=== PATIENT | female | born 1965 | race Caucasian/White ===

== ENCOUNTER 2021-03-11 12:19 | Outpatient (CLI) | payer OTHER | END 2021-03-11 12:20 | disposition critical access hospital (66) | LOC: EMS 12:19 | DX: Z04.3 Encounter for examination and observation following other accident (principal); M25.551 Pain in right hip | CPT/HCPCS: A0425; A0427 ==

== ENCOUNTER 2021-03-11 12:37 | Emergency (ER) | payer OTHER ==
[2021-03-11] MEDS ORDERED: HYDROmorphone 1 MG/ML CARPUJECT IVP STA (13:05)
[2021-03-11] MEDS ORDERED: SODIUM CHLORIDE 0.9% 1,000 ML IV STA (13:05)
[2021-03-11] MEDS ORDERED: PROPOFOL 200 MG/20 ML VIAL IVP STA (13:05)
--- NOTE | 2021-03-11 13:06 | ED Physician Documentation ---
PD HPI LOWER EXT INJURY - Stated complaint Stated Complaint: HIP PX - Chief complaint Chief Complaint: Trauma Ext - History obtained from History obtained from: Patient, EMS - Additional information Additional information: 55-year-old woman with a 5-year-old prosthetic hip. Had a dislocation about 2 weeks ago. Today she was standing on flat ground and felt her hip pop and dislocate again. Pain is severe despite 100 mcg of fentanyl given in route. Review of Systems Ten Systems: 10 systems reviewed and negative Constitutional: reports: Reviewed and negative Throat: reports: Reviewed and negative Cardiac: reports: Reviewed and negative Respiratory: reports: Reviewed and negative PD PAST MEDICAL HISTORY - Past Medical History Past Medical History: No - Past Surgical History Past Surgical History: Yes Ortho: Hip replacement - Present Medications Home Medications: Ambulatory Orders Medication Instructions Recorded Confirmed HYDROcod/ACETAM 5/325 [Garfield 5/325] 1 - 2 tab PO Q6H PRN #15 tablet 03/11/21 Ondansetron Odt [Zofran] 4 mg TL Q6H PRN #10 tablet 03/11/21 - Allergies Allergies/Adverse Reactions: Allergies Allergy/AdvReac Type Severity Reaction Status Date / Time tramadol Allergy Unknown Verified 03/11/21 12:58 ketamine AdvReac Anxiety Verified 03/11/21 12:58 - Social History Smoking Status: Current every day smoker - Family History Family history: reports: Non contributory PD ED PE NORMAL - Vitals Vital signs reviewed: Yes - General General: Alert and oriented X 3, No acute distress - HEENT HEENT: PERRL, EOMI - Neck Neck: Supple, no meningeal sign, No bony TTP - Cardiac Cardiac: RRR, No murmur - Respiratory Respiratory: No respiratory distress, Clear bilaterally - Abdomen Abdomen: Normal bowel sounds, Soft, Non tender - Back Back: No CVA TTP, No spinal TTP - Derm Derm: Normal color, Warm and dry - Extremities Extremities: Other (Hip exquisitely tender and held externally rotated and flexed on the right.) - Neuro Neuro: Alert and oriented X 3, Normal speech Results - Vitals Vitals: Vital Signs - 24 hr 03/11/21 03/11/21 03/11/21 12:54 13:31 13:38 Temperature 36.3 C L Heart Rate 77 80 71 Respiratory 16 15 12 Rate Blood Pressure 118/92 H 133/82 H 144/70 H O2 Saturation 96 99 100 03/11/21 13:45 Temperature Heart Rate 82 Respiratory 14 Rate Blood Pressure 122/64 O2 Saturation 94 Oxygen O2 Source Room air Procedures - Reduction Body part reduced: Right, Hip, prosthetic Fracture or dislocation: Dislocation Hip reduction technique: Fulcrum Reduction aftercare: Alignment improved - Procedural sedation Mallampati classification: I Sedation prep: Informed consent, Time out completed, Last meal (8am), PE performed, ASA 2 - mild disease (smoking) Sedation medications: propofol (70 then 30mg IVP) Patient status during sedation: Unresponsive, Vitals remained stable, Maintained airway Sedation recovery: Recovered uneventfully Time in sedation (Minutes): 15 PD MEDICAL DECISION MAKING - ED course ED course: 55-year-old woman with recurrent right hip dislocation, reduced successfully with sedation. Departure - Departure Disposition: 01 Home, Self Care Clinical Impression: Dislocation of hip joint prosthesis Qualifiers: Encounter type: initial encounter Qualified Code(s): T84.029A - Dislocation of unspecified internal joint prosthesis, initial encounter Condition: Good Record reviewed to determine appropriate education?: Yes Instructions: ED Hip Replace Dislocation Reduc Follow-Up: Bryan Haddad MD [Provider Admit Priv/Credential] - Prescriptions: HYDROcod/ACETAM 5/325 [Garfield 5/325] 1 - 2 tab PO Q6H PRN #15 tablet PRN Reason: Pain Ondansetron Odt [Zofran] 4 mg TL Q6H PRN #10 tablet PRN Reason: Nausea / Vomiting Comments: Prescription was sent electronically to [facility] in [place]. Follow-up with the orthopedic surgeon listed on this form, call his office for an appointment. Do not drink or drive today I am prescribing a short course of narcotic pain medication for you. These are potentially dangerous and addictive medications that should be used carefully. These medications may constipate you. Take an msci-tjo-hariahi stool softener (docusate) twice daily with plenty of water while taking these medications. If you go 24 hours without a bowel movement, take hcur-ehb-fpowlie miralax, per package instructions. Do not drink or drive while taking these medications. If you received narcotic or sedating medications while in the emergency department, do not drive for 24 hours. Store this medication in a safe, secure place and out of reach of children. It is a violation of federal law to give or sell this medication to another person or to use in a manner other than prescribed. The ED will not refill narcotic prescriptions, including prescriptions lost or stolen. To dispose of unwanted medications: 1. [facility] at [address] in [place] has a medication drop box. They accept prescription medications (in pill form) Monday through Monday 9:00 a.m. to 5:00 p.m. 2. The [facility] [employer] accepts prescription medications (in pill form only) for disposal year round. Call for more information. 3. Contact the [facility] for the next [facility] sponsored prescription drug collection event. , [phone], or [phone]; Note that many narcotic pain relievers also contain Tylenol/acetaminophen. Please ensure that your total dose of acetaminophen from all sources does not exceed 3 g (3000 mg) per day.
--- NOTE | 2021-03-11 13:59 | XRAY Report ---
PROCEDURE: Pelvis 1 View INDICATIONS: RIGHT HIP PAIN TECHNIQUE: 1 view(s) of the pelvis acquired. COMPARISON: None. FINDINGS: Bones: Bilateral hip arthroplasties are present. The right hip arthroplasty is dislocated with the f emoral component appearing superior and lateral to the acetabular component. There is no visualized h ardware or osseous fracture. Soft tissues: Visualized bowel gas pattern is normal. No suspicious soft tissue calcifications. IMPRESSION: Right femoral arthroplasty dislocation as above. No definitive fracture. However, evalua tion is given single AP view. Reviewed by: Jessica Shin MD on 03/11/2021 1:58 PM PDT Approved by: Jessica Shin MD on 03/11/2021 1:58 PM PDT Station ID: [id number]
--- NOTE | 2021-03-11 14:12 | XRAY Report ---
PROCEDURE: Hip w/Pelvis 2-3V RT INDICATIONS: post reduction TECHNIQUE: AP pelvis with lateral view(s) of the bilateral hip(s). COMPARISON: None. FINDINGS: Bones: There is been interval reduction of previous dislocated right femoral arthroplasty. No definit lorenzo fractures identified. Pelvic ring appears intact. No suspicious bony lesions. Soft tissues: The visualized bowel gas pattern is normal. No suspicious soft tissue calcifications. IMPRESSION: Interval reduction of right femoral head. No visualized fracture. Reviewed by: Jessica Shin MD on 03/11/2021 2:11 PM PDT Approved by: Jessica Shin MD on 03/11/2021 2:11 PM PDT Station ID: [id number]
[2021-03-11 14:32] VITALS: BP 134/68
== END 2021-03-11 14:32 | disposition home or self-care (01) ==
LOC: EDUNIT# → ED 12:37
DX: T84.020A Dislocation of internal right hip prosthesis, initial encounter (principal); Y79.2 Prosthetic and other implants, materials and accessory orthopedic devices associated with adverse incidents; F17.200 Nicotine dependence, unspecified, uncomplicated
CPT/HCPCS: 27266; 72170; 73502; 96374; 99152; 99284; 99285; J1170; 94770